=== PATIENT | male | born 1970 | race African-American/Black ===

== ENCOUNTER 2019-07-17 12:30 | Inpatient (IN) | payer BC, OTHER ==
[2019-07-17] MEDS ORDERED: SODIUM CHLORIDE 0.9% 1000 ML 2,000 ML IV ONE (12:34)
--- NOTE | 2019-07-17 12:36 | Emergency Department Report ---
Chief Complaint: Weakness Stated Complaint: FLU SYM/LBP - HPI History of Present Illness: sent by pmd Dr Fidel Rae; 49 y/o male pale weak ? anemic liberian speaking indicates epigastric abd pain motor exam non focal speakign in clear sentenses no respiratory distress conjunctiva pale denies brbpr, hematemesis labs, ekg xr chest ct ap non con ivf main side bp 105/61 mm hg MSE screening note: Focused history and physical exam performed. Due to findings the following was ordered: ED Disposition for MSE Condition: Stable
--- NOTE | 2019-07-17 13:08 | XRay Report ---
CHEST 1 VIEW 07/17/2019 12:54 PM INDICATION / CLINICAL INFORMATION: Epigastric pain. Weakness. COMPARISON: None available. FINDINGS: SUPPORT DEVICES: None. HEART / MEDIASTINUM: No significant abnormality. LUNGS / PLEURA: No significant pulmonary or pleural abnormality. No pneumothorax. ADDITIONAL FINDINGS: No significant additional findings. IMPRESSION: 1. No acute abnormality of the chest. Signer Name: Julio Melendez MD Signed: 07/17/2019 1:03 PM Workstation Name: [email or web address]
[2019-07-17 14:11] LABS: Basophils % (Auto) 0.3 % (0.0-1.8); Eosinophils % (Auto) 0.4 % (0.0-4.3); Lymphocytes # (Auto) 2.1 K/mm3 (1.2-5.4); Lymphocytes % (Auto) 20.8 % (13.4-35.0); Mean Corpuscular HGB Conc 33 % (32-34); Mean Corpuscular Volume 78 fl (84-94); Monocytes # (Auto) 0.8 K/mm3 (0.0-0.8); Monocytes % (Auto) 7.9 % (0.0-7.3); Platelet Count 304 K/mm3 (140-440); Red Blood Count 1.92 M/mm3 (3.65-5.03); Red Cell Distribution Width 18.7 % (13.2-15.2)
--- NOTE | 2019-07-17 14:12 | Cat Scan Report ---
CT ABDOMEN AND PELVIS WITHOUT CONTRAST HISTORY: abd ppain weak hypotension anemia. COMPARISON: None. TECHNIQUE: CT images of the abdomen and pelvis were obtained without administration of intravenous co ntrast. All CT scans at this location are performed using CT dose reduction for ALARA by means of au tomated exposure control. FINDINGS: Lungs/bones: Lung bases are clear. There is mild DJD in the spine and pelvis with no acute osseous a bnormality identified. There is a rounded sclerotic bone lesion measuring 2.2 cm in the right acetabu lar roof which demonstrates a narrow zone of transition and appears to have internal fatty marrow aryan ments. There is slight overlying cortical thickening as well with no endosteal scalloping, pathologic fracture, or cortical breakthrough/soft tissue component. Abdomen/pelvis: The liver, gallbladder, spleen, pancreas, adrenals, kidneys, and proximal GI tract a ppear unremarkable. Urinary bladder and prostate appear unremarkable with no pelvic free fluid or acute colonic abnormali ty. The appendix and terminal ileum appear normal. IMPRESSION: 1. No acute abnormality identified. 2. Incidental sclerotic bony finding in the right acetabular roof as outlined above which overall has a nonaggressive appearance such as seen with a fibro-osseous lesion. Despite this, correlate with an y prior imaging (I have none) and consider follow-up outpatient MRI of the pelvis with contrast for f urther evaluation. Signer Name: Saurabh Tim MD Signed: 07/17/2019 2:08 PM Workstation Name: [id number]
[2019-07-17 14:19] LABS: INR 1.08 (0.87-1.13)
[2019-07-17 14:27] LABS: Hematocrit 14.9 % (35.5-45.6); Hemoglobin 4.9 gm/dl (11.8-15.2)
[2019-07-17 14:29] LABS: Alanine Aminotransferase 20 units/L (7-56); Albumin 3.7 g/dL (3.9-5); BUN/Creatinine Ratio 30; Blood Urea Nitrogen 24 mg/dL (9-20); Calcium 8.4 mg/dL (8.4-10.2); Hemolysis Index 0
[2019-07-17] MEDS ORDERED: SODIUM CHLORIDE 0.9% 500 ML 500 ML IV ONE ×2 (18:53→20:13)
--- NOTE | 2019-07-17 19:17 | Emergency Department Report ---
ED Abdominal Pain HPI - General Chief Complaint: Weakness Stated Complaint: FLU SYM/LBP Time Seen by Provider: 07/17/19 18:40 Source: patient Mode of arrival: Wheelchair Limitations: Language Barrier - History of Present Illness Initial Comments: This is a 49-year-old male nontoxic, well nourished in appearance, no acute signs of distress presents to the ED with c/o of generlized weakness and abdominal pain. Patient was sent by PCP for hypotension and pale in appearance. Patient denies any blood in stool. Denies any hemoptysis.. Patient denies any vomiting. Patient describes abdominal pain as cramping and aching with level of 8/10 primarily in the epigastric area. Patient denies chest pain, short of breath, fever, chills, headache, stiff neck, numbness or tingling. Patient denies any diarrhea or constipation. Patient denies any recent travels. Patient denies any allergies and stated past medical history includes liver disease. present during full interview and exam for Malay translation. MD Complaint: abdominal pain -: days(s) Location: epigastric Radiation: none Migration to: no migration Severity: mild Severity scale (0 -10): 8 Quality: cramping, aching Consistency: constant Improves With: nothing Worsens With: nothing Associated Symptoms: nausea. denies: vomiting, diarrhea, fever, chills, constipation, dysuria, hematemesis, hematochezia, melena, hematuria, anorexia, syncope - Related Data Allergies Allergy/AdvReac Type Severity Reaction Status Date / Time No Known Allergies Allergy Verified 07/17/19 20:08 ED Review of Systems ROS: Stated complaint: FLU SYM/LBP Other details as noted in HPI Constitutional: denies: chills, fever Eyes: denies: eye pain, eye discharge, vision change ENT: denies: ear pain, throat pain Respiratory: denies: cough, shortness of breath, wheezing Cardiovascular: denies: chest pain, palpitations Endocrine: no symptoms reported Gastrointestinal: abdominal pain, nausea. denies: vomiting, diarrhea Genitourinary: denies: urgency, dysuria Musculoskeletal: denies: back pain, joint swelling, arthralgia Skin: denies: rash, lesions Neurological: denies: headache, weakness, paresthesias Psychiatric: denies: anxiety, depression Hematological/Lymphatic: denies: easy bleeding, easy bruising ED Past Medical Hx - Past Medical History Previous Medical History?: No - Surgical History Past Surgical History?: No - Social History Smoking Status: Current Every Day Smoker Substance Use Type: None ED Physical Exam - General Limitations: Language Barrier General appearance: alert, in no apparent distress - Head Head exam: Present: atraumatic, normocephalic - Eye Eye exam: Present: normal appearance, PERRL, EOMI Pupils: Present: normal accommodation - Neck Neck exam: Present: normal inspection, full ROM. Absent: tenderness, meningismus, lymphadenopathy - Respiratory Respiratory exam: Present: normal lung sounds bilaterally. Absent: respiratory distress, wheezes, rales, rhonchi, stridor, chest wall tenderness, accessory muscle use, decreased breath sounds, prolonged expiratory - Cardiovascular Cardiovascular Exam: Present: regular rate, normal rhythm, tachycardia, normal heart sounds. Absent: bradycardia, irregular rhythm, systolic murmur, diastolic murmur, rubs, gallop - GI/Abdominal GI/Abdominal exam: Present: soft, tenderness (epigastric), normal bowel sounds. Absent: distended, guarding, rebound, rigid, diminished bowel sounds - Rectal Rectal exam: Present: normal rectal tone, heme (+) stool, other (brown colored stool noticed. ). Absent: black stool, bloody stool, fecal impaction, he morrhoids, mass, tenderness - Extremities Exam Extremities exam: Present: normal inspection, full ROM - Back Exam Back exam: Present: normal inspection, full ROM. Absent: tenderness, CVA tenderness (R), CVA tenderness (L), muscle spasm, paraspinal tenderness, vertebral tenderness, rash noted - Neurological Exam Neurological exam: Present: alert, oriented X3, normal gait - Psychiatric Psychiatric exam: Present: normal affect, normal mood - Skin Skin exam: Present: warm, dry, intact, pallor. Absent: normal color, rash, cyanosis, diaphoretic, erythema, urticaria, vesicles, petechiae, abrasion, ecchy mosis ED Course Vital Signs 07/17/19 07/17/19 12:35 20:13 Temperature 98.5 F 98.9 F Pulse Rate 91 H 93 H Respiratory 16 21 Rate Blood Pressure 105/61 Blood Pressure 124/71 [Right] O2 Sat by Pulse 100 100 Oximetry - Reevaluation(s) Reevaluation #1: 07/17/19 19:18 Patient is speaking in full sentences with no signs of distress noted. - Consultations Consultation #1: 07/17/19 19:18 Patient has been consulted with Dr. Bro V about patient history, physical exam, and labs and agrees to ED plan of care and possible admission. Consultation #2: 07/17/19 20:15 Patient has been consulted with Dr. Jain (GI) about patient history, physical exam, and labs and patient to receive 3 RBCs with Protonix bolus and IV DRIP and admitted with hospitalist. ED Medical Decision Making - Lab Data Result diagrams: 07/17/19 13:38 07/17/19 13:38 - Medical Decision Making This is a 49-year-old male that presents with acute on chronic GI bleed. Patient is stable and was examined by me. Patient was consulted with GI and admitted by hospitalist TREY Olmos. CT shows possible enteritis. Dr. Crabtree consulted and agrees for admission. He was resuscitated with fluids and 3 RBCs. At time of admission, the patient does not seem toxic or ill in appearance. No acute signs of distress noted. Patient agrees to admission treatment plan of care. No further questions noted by the patient. - Differential Diagnosis GI bleed, GI ulcer, colitis, esophageal varices Critical care attestation.: If time is entered above; I have spent that time in minutes in the direct care of this critically ill patient, excluding procedure time. ED Disposition Clinical Impression: GI bleed Qualifiers: GI bleed type/associated pathology: unspecified gastrointestinal hemorrhage type Qualified Code(s): K92.2 - Gastrointestinal hemorrhage, unspecified Disposition: -09 OP ADMIT IP TO THIS HOSP Is pt being admited?: Yes Condition: Stable Referrals: NIGEL CARLTON MD [Primary Care Provider] - 3-5 Days
[2019-07-17] MEDS ORDERED: SODIUM CHLORIDE 0.9% 1000 ML 2,000 ML ONE (19:58)
[2019-07-17] MEDS: PANTOPRAZOLE 40 MG INJ IV ONE ×2 (20:55→21:00)
[2019-07-17] MEDS: PANTOPRAZOLE 80 MG in SODIUM CHLORIDE 0.9% 100 ML IV SCH (20:59)
--- NOTE | 2019-07-17 22:00 | Cat Scan Report ---
CT ABDOMEN AND PELVIS WITH IV CONTRAST INDICATION: abd pain. Diffuse left abdominal pain COMPARISON: None available. TECHNIQUE: Axial CT images were obtained through the abdomen and pelvis after 100 mL IV contrast. All CT scans a t this location are performed using CT dose reduction for ALARA by means of automated exposure contro l. FINDINGS -- ABDOMEN: Lung Bases: No acute abnormality. The left ventricle wall appears moderately thickened. Liver: Normal. Gallbladder: Normal. Bile Ducts: Normal. Pancreas: Normal. Spleen: Normal. Adrenals: Normal. Right Kidney and Proximal Ureter: Normal. Left Kidney and Proximal Ureter: Normal. Stomach and Bowel: Slight increased prominence and enhancement involving multiple small bowel loops t hroughout much of the left mid to lower abdomen, nonspecific. No bowel obstruction is appreciated.. Lymph Nodes: No significant adenopathy. Aorta: No significant abnormality. IVC: Normal. Additional Findings: None. FINDINGS -- PELVIS: Urinary Bladder and Distal Ureters: Normal. Reproductive Organs: No acute abnormality. Appendix: Normal. Bowel: No acute abnormality. Free Fluid: None. Lymph Nodes: No significant adenopathy. Additional Findings: None. Skeletal System: No acute abnormality. IMPRESSION: 1. Small bowel findings within the left mid abdomen appear most consistent with fairly diffuse enteri tis, possibly infectious. No evidence of bowel obstruction at this time. 2. Incidental note is made of a moderately thickened left ventricular wall of the lower heart. Signer Name: Wayne Arboleda MD Signed: 07/17/2019 9:55 PM Workstation Name: [id number]
[2019-07-17] MEDS ORDERED: METOCLOPRAMIDE 10 MG/2 ML INJ IV PRN (22:37)
[2019-07-17] MEDS ORDERED: ACETAMINOPHEN 325 MG TAB PO PRN (22:37)
[2019-07-17] MEDS ORDERED: ONDANSETRON 4 MG/2 ML INJ IV PRN (22:37)
[2019-07-17] MEDS ORDERED: SODIUM CHLORIDE 0.9% 1000 ML 1,000 ML IV SCH (22:45)
--- NOTE | 2019-07-17 23:45 | History and Physical Report ---
<JEFFERSON AQUINO - Last Filed: 07/18/19 00:13> History of Present Illness Date of examination: 07/17/19 Date of admission: 07/17/2019 Chief complaint: generalized weakness History of present illness: 49-year-old Cameroonian male who is an ongoing smoker with past medical history of "liver disease" who presents to the [facility] ED after being referred to ED by his PCP for concerns of hypotension and pallor. Pt's friend is present at the bed side. Pt does not speak Mohawk and has requested that his friend translate. Pt went to his PCP with complaints of generalized weakness and abdominal pain. The pain is located in epigastric area. He describes it as sharp and rates it 10/10. Denies hemoptysis, hematemesis, hematochezia, melena, or dyspnea. He was found to be hypotensive and was referred to ED for further evaluation and treatment. Patient was found to be severely anemic with hemoglobin of 4.9. Heme stool positive with no signs of active bleeding. GI was consulted and recommendations were appreciated. Will admit for further evaluation and treatment. Past History Past Medical History: No medical history, liver disease, other Past Surgical History: No surgical history Social history: smoking (smokes 1/2 pack per day) Family history: no significant family history Medications and Allergies Allergies Allergy/AdvReac Type Severity Reaction Status Date / Time No Known Allergies Allergy Verified 07/17/19 20:08 Active Meds: Active Medications Acetaminophen (Tylenol) 650 mg PO Q4H PRN PRN Reason: Pain MILD(1-3)/Fever >100.5/ROWELL Pantoprazole Sodium 80 mg/ (Sodium Chloride) 100 mls @ 10 mls/hr IV DIRECT ENOCH Last Admin: 07/17/19 20:59 Dose: 8 mg/hr, 10 mls/hr Documented by: Sodium Chloride (Nacl 0.9% 1000 Ml) 1,000 mls @ 100 mls/hr IV DIRECT ENOCH Metoclopramide HCl (Reglan) 10 mg IV Q6H PRN PRN Reason: Nausea And Vomiting Ondansetron HCl (Zofran) 4 mg IV Q6H PRN PRN Reason: Nausea And Vomiting Sodium Chloride (Sodium Chloride Flush Syringe 10 Ml) 10 ml IV BID ENOCH Sodium Chloride (Sodium Chloride Flush Syringe 10 Ml) 10 ml IV PRN PRN PRN Reason: LINE FLUSH Review of Systems All systems: negative Constitutional: fatigue, weakness Cardiovascular: other (hypotension) Exam - Physical Exam Narrative exam: Physical exam General appearance: Present: No acute distress, alert and oriented 3, well developed, pale, Cam[place]onian adult male - EENT Eyes: Present: PERRL, EOM intact ENT: hearing intact, normal dentition - Neck Neck: Present: supple, normal ROM - Respiratory Respiratory effort: Non-labored Respiratory: Clear throughout - Cardiovascular Heart rate: 93 (bpm) Rhythm: Sinus rhythm Heart Sounds: Present: S1 & S2. Absent: rub, click - Extremities Extremities: no ischemia, pulses intact, - Peripheral Assessment Peripheral Pulses: within normal limits - Abdominal General gastrointestinal:heme (+) stool, soft, non-tender, normal bowel sounds - Integumentary Integumentary: Present: warm, dry - Musculoskeletal Musculoskeletal: Able to move all extremities -Neurological Neurological: CN II-XII intact - Psychiatric Psychiatric: cooperative - Constitutional Vitals: Temp Pulse Resp BP Pulse Ox 98.0 F 78 18 120/67 100 07/17/19 22:55 07/17/19 23:00 07/17/19 23:00 07/17/19 23:00 07/17/19 23:00 Results - Labs CBC & Chem 7: 07/17/19 13:38 07/17/19 13:38 Labs: Laboratory Last Values WBC 10.2 K/mm3 (4.5-11.0) 07/17/19 13:38 RBC 1.92 M/mm3 (3.65-5.03) L 07/17/19 13:38 Hgb 4.9 gm/dl (11.8-15.2) L* 07/17/19 13:38 Hct 14.9 % (35.5-45.6) L* 07/17/19 13:38 MCV 78 fl (84-94) L 07/17/19 13:38 MCH 26 pg (28-32) L 07/17/19 13:38 MCHC 33 % (32-34) 07/17/19 13:38 RDW 18.7 % (13.2-15.2) H 07/17/19 13:38 Plt Count 304 K/mm3 (140-440) 07/17/19 13:38 Lymph % (Auto) 20.8 % (13.4-35.0) 07/17/19 13:38 Sanborn % (Auto) 7.9 % (0.0-7.3) H 07/17/19 13:38 Eos % (Auto) 0.4 % (0.0-4.3) 07/17/19 13:38 Baso % (Auto) 0.3 % (0.0-1.8) 07/17/19 13:38 Lymph # 2.1 K/mm3 (1.2-5.4) 07/17/19 13:38 Sanborn # 0.8 K/mm3 (0.0-0.8) 07/17/19 13:38 Eos # 0.0 K/mm3 (0.0-0.4) 07/17/19 13:38 Baso # 0.0 K/mm3 (0.0-0.1) 07/17/19 13:38 Seg Neutrophils % 70.6 % (40.0-70.0) H 07/17/19 13:38 Seg Neutrophils # 7.2 K/mm3 (1.8-7.7) 07/17/19 13:38 PT 14.1 Sec. (12.2-14.9) 07/17/19 13:38 INR 1.08 (0.87-1.13) 07/17/19 13:38 Sodium 134 mmol/L (137-145) L 07/17/19 13:38 Potassium 4.1 mmol/L (3.6-5.0) 07/17/19 13:38 Chloride 99.7 mmol/L (98-107) 07/17/19 13:38 Carbon Dioxide 23 mmol/L (22-30) 07/17/19 13:38 Anion Gap 15 mmol/L 07/17/19 13:38 BUN 24 mg/dL (9-20) H 07/17/19 13:38 Creatinine 0.8 mg/dL (0.8-1.5) 07/17/19 13:38 Estimated GFR > 60 ml/min 07/17/19 13:38 BUN/Creatinine Ratio 30 % 07/17/19 13:38 Glucose 114 mg/dL (75-100) H 07/17/19 13:38 Calcium 8.4 mg/dL (8.4-10.2) 07/17/19 13:38 Magnesium 2.30 mg/dL (1.7-2.3) 07/17/19 13:38 Total Bilirubin 0.30 mg/dL (0.1-1.2) 07/17/19 13:38 AST 33 units/L (5-40) 07/17/19 13:38 ALT 20 units/L (7-56) 07/17/19 13:38 Alkaline Phosphatase 57 units/L (35-129) 07/17/19 13:38 Total Creatine Kinase 128 units/L (55-170) 07/17/19 13:38 Troponin T 0.028 ng/mL (0.00-0.029) 07/17/19 13:38 Total Protein 6.0 g/dL (6.3-8.2) L 07/17/19 13:38 Albumin 3.7 g/dL (3.9-5) L 07/17/19 13:38 Albumin/Globulin Ratio 1.6 % 07/17/19 13:38 Lipase 44 units/L (13-60) 07/17/19 13:38 Blood Type O POSITIVE 07/17/19 13:40 Antibody Screen Negative 07/17/19 13:40 Crossmatch See Detail 07/17/19 13:40 - Imaging and Cardiology Imaging and Cardiology: CT Abdomen/Pelvis with con: FINDINGS -- ABDOMEN: Lung Bases: No acute abnormality. The left ventricle wall appears moderately thickened. Liver: Normal. Gallbladder: Normal. Bile Ducts: N ormal. Pancreas: Normal. Spleen: Normal. Adrenals: Normal. Right Kidney and Proximal Ureter: Normal. Left Kidney and Proximal Ureter: Normal. Stomach and Bowel: Slight increased prominence and enhancement involving multiple small bowel loops throughout much of the left mid to lower abdomen, nonspecific. No bowel obstruction is appreciated.. Lymph Nodes: No significant adenopathy. Aorta: No significant abnormality. IVC: Normal. Additional Findings: None. FINDINGS -- PELVIS: Urinary Bladder and Distal Ureters: Normal. Reproductive Organs: No acute abnormality. Appendix: Normal. Bowel: No acute abnormality. Free Fluid: None. Lymph Nodes: No significant adenopathy. Additional Findings: None. Skeletal System: No acute abnormality. IMPRESSION: 1. Small bowel findings within the left mid abdomen appear most consistent with fairly diffuse enteritis, possibly infectious. No evidence of bowel obstruction at this time. 2. Incidental note is made of a moderately thickened left ventricular wall of the lower heart. CT Abdomen/Pelvis without con: IMPRESSION: 1. No acute abnormality identified. 2. Incidental sclerotic bony finding in the right acetabular roof as outlined above which overall has a nonaggressive appearance such as seen with a fibro- osseous lesion. Despite this, correlate with any prior imaging (I have none) and consider follow-up outpatient MRI of the pelvis with contrast for further evaluation. CXR: FINDINGS: SUPPORT DEVICES: None. HEART / MEDIASTINUM: No significant abnormality. LUNGS / PLEURA: No significant pulmonary or pleural abnormality. No pneumothorax. ADDITIONAL FINDINGS: No significant additional findings. IMPRESSION: 1. No acute abnormality of the chest. Assessment and Plan Assessment and plan: 49-year-old Cam[place] male who is an ongoing smoker with past medical history of "liver disease" who presents to the [facility] ED after being referred to ED by his PCP for concerns of hypotension and pallor. GI Bleed -Heme positive stool -CT abdomen Pelvis revealed: Small bowel findings within the left mid abdomen appear most consistent with fairly diffuse enteritis, possibly infectious. No evidence of bowel obstruction at this time. -Hgb 4.9 -Receiving 3 units PRBC -N.p.o. -On Protonix drip -GI following Anemia -Hemoglobin on admission 4.9 -Highly suspicious for active GI bleed -Receiving transfusion -Continue to monitor hemoglobin -Transfuse as needed Hypotension -BP on admission 105/61 -Likely due to severe anemia -Responsive to fluid resuscitation -Receiving PRBC transfusion -Continue to monitor BP Acute abdominal pain -Suspicion for enteritis for CT results -No leukocytosis -Afebrile -No emesis or nausea -Continue supportive care -We will hold off on starting IV antibiotics for now Dehydration -BUN 24 -Likely due to anemia and poor oral intake -Received IV fluids -Continue to monitor Moderately thickened left ventricular wall of the lower heart -Incidental finding seen on CT abdomen/pelvis -Cardiology consulted Tobacco abuse -Current every day smoker -Smokes half pack a day -Counseled for cessation for 10 minutes -Nicotine patch when necessary DVT -SCD's -Full systemic anticoagulation due to severe anemia Advance Directives: No VTE prophylaxis?: Mechanical Plan of care discussed with patient/family: Yes <LROY SALGUERO - Last Filed: 07/18/19 04:07> History of Present Illness Date of admission: 07/17/19 22:37 Medications and Allergies Active Meds: Active Medications Acetaminophen (Tylenol) 650 mg PO Q4H PRN PRN Reason: Pain MILD(1-3)/Fever >100.5/ROWELL Pantoprazole Sodium 80 mg/ (Sodium Chloride) 100 mls @ 10 mls/hr IV DIRECT ENOCH Last Admin: 07/17/19 20:59 Dose: 8 mg/hr, 10 mls/hr Documented by: Sodium Chloride (Nacl 0.9% 1000 Ml) 1,000 mls @ 100 mls/hr IV DIRECT ENOCH Last Admin: 07/18/19 01:14 Dose: 100 mls/hr Documented by: Metoclopramide HCl (Reglan) 10 mg IV Q6H PRN PRN Reason: Nausea And Vomiting Nicotine (Habitrol) 14 mg TD QDAY ENOCH Ondansetron HCl (Zofran) 4 mg IV Q6H PRN PRN Reason: Nausea And Vomiting Sodium Chloride (Sodium Chloride Flush Syringe 10 Ml) 10 ml IV BID ENOCH Sodium Chloride (Sodium Chloride Flush Syringe 10 Ml) 10 ml IV PRN PRN PRN Reason: LINE FLUSH Exam - Constitutional Vitals: Temp Pulse Resp BP Pulse Ox 98.0 F 72 18 109/65 100 07/18/19 03:05 07/18/19 03:05 07/18/19 03:05 07/18/19 03:05 07/18/19 02:43 Results - Labs CBC & Chem 7: 07/17/19 13:38 07/17/19 13:38 Labs: Laboratory Last Values WBC 10.2 K/mm3 (4.5-11.0) 07/17/19 13:38 RBC 1.92 M/mm3 (3.65-5.03) L 07/17/19 13:38 Hgb 4.9 gm/dl (11.8-15.2) L* 07/17/19 13:38 Hct 14.9 % (35.5-45.6) L* 07/17/19 13:38 MCV 78 fl (84-94) L 07/17/19 13:38 MCH 26 pg (28-32) L 07/17/19 13:38 MCHC 33 % (32-34) 07/17/19 13:38 RDW 18.7 % (13.2-15.2) H 07/17/19 13:38 Plt Count 304 K/mm3 (140-440) 07/17/19 13:38 Lymph % (Auto) 20.8 % (13.4-35.0) 07/17/19 13:38 Sanborn % (Auto) 7.9 % (0.0-7.3) H 07/17/19 13:38 Eos % (Auto) 0.4 % (0.0-4.3) 07/17/19 13:38 Baso % (Auto) 0.3 % (0.0-1.8) 07/17/19 13:38 Lymph # 2.1 K/mm3 (1.2-5.4) 07/17/19 13:38 Sanborn # 0.8 K/mm3 (0.0-0.8) 07/17/19 13:38 Eos # 0.0 K/mm3 (0.0-0.4) 07/17/19 13:38 Baso # 0.0 K/mm3 (0.0-0.1) 07/17/19 13:38 Seg Neutrophils % 70.6 % (40.0-70.0) H 07/17/19 13:38 Seg Neutrophils # 7.2 K/mm3 (1.8-7.7) 07/17/19 13:38 PT 14.1 Sec. (12.2-14.9) 07/17/19 13:38 INR 1.08 (0.87-1.13) 07/17/19 13:38 Sodium 134 mmol/L (137-145) L 07/17/19 13:38 Potassium 4.1 mmol/L (3.6-5.0) 07/17/19 13:38 Chloride 99.7 mmol/L (98-107) 07/17/19 13:38 Carbon Dioxide 23 mmol/L (22-30) 07/17/19 13:38 Anion Gap 15 mmol/L 07/17/19 13:38 BUN 24 mg/dL (9-20) H 07/17/19 13:38 Creatinine 0.8 mg/dL (0.8-1.5) 07/17/19 13:38 Estimated GFR > 60 ml/min 07/17/19 13:38 BUN/Creatinine Ratio 30 % 07/17/19 13:38 Glucose 114 mg/dL (75-100) H 07/17/19 13:38 Calcium 8.4 mg/dL (8.4-10.2) 07/17/19 13:38 Magnesium 2.30 mg/dL (1.7-2.3) 07/17/19 13:38 Total Bilirubin 0.30 mg/dL (0.1-1.2) 07/17/19 13:38 AST 33 units/L (5-40) 07/17/19 13:38 ALT 20 units/L (7-56) 07/17/19 13:38 Alkaline Phosphatase 57 units/L (35-129) 07/17/19 13:38 Total Creatine Kinase 128 units/L (55-170) 07/17/19 13:38 Troponin T 0.028 ng/mL (0.00-0.029) 07/17/19 13:38 Total Protein 6.0 g/dL (6.3-8.2) L 07/17/19 13:38 Albumin 3.7 g/dL (3.9-5) L 07/17/19 13:38 Albumin/Globulin Ratio 1.6 % 07/17/19 13:38 Lipase 44 units/L (13-60) 07/17/19 13:38 Blood Type O POSITIVE 07/17/19 13:40 Antibody Screen Negative 07/17/19 13:40 Crossmatch See Detail 07/17/19 13:40 Assessment and Plan Assessment and plan: 49-year-old male comes emergency room with complaints of epigastric pain which he has been experiencing for the last 6 months to 1 year however his symptoms worsened today so he came for evaluation. Also admits to weight loss of over the last 3 months, cannot quantify. In the emergency room he was found to be anemic he denies blood in stool or vomitus. Hemoglobin was extremely low but he was GI was consulted for EGD. Agree with plan as stated above.
[2019-07-18 07:09] LABS: Basophils % (Auto) 0.7 % (0.0-1.8); Eosinophils # (Auto) 0.1 K/mm3 (0.0-0.4); Eosinophils % (Auto) 0.9 % (0.0-4.3); Hemoglobin 6.6 gm/dl (11.8-15.2); Lymphocytes # (Auto) 1.9 K/mm3 (1.2-5.4); Lymphocytes % (Auto) 25.4 % (13.4-35.0); Mean Corpuscular HGB Conc 33 % (32-34); Mean Corpuscular Volume 84 fl (84-94); Monocytes # (Auto) 0.5 K/mm3 (0.0-0.8); Monocytes % (Auto) 6.7 % (0.0-7.3); Platelet Count 239 K/mm3 (140-440); Red Blood Count 2.38 M/mm3 (3.65-5.03); Red Cell Distribution Width 18.7 % (13.2-15.2)
[2019-07-18 07:43] LABS: Hematocrit 19.9 % (35.5-45.6)
[2019-07-18 07:51] LABS: BUN/Creatinine Ratio 24; Blood Urea Nitrogen 12 mg/dL (9-20); Calcium 6.1 mg/dL (8.4-10.2); Hemolysis Index 21
--- NOTE | 2019-07-18 10:06 | Gastroenterology Consultation ---
History of Present Illness - Reason for Consult Consult date: 07/18/19 GI bleed Requesting physician: SABA TOURE - History of Present Illness Patient is a 49 y/o male who was sent to ED by PCP for evaluation of hypotension and pallor. Upon admission, he was found to be severely anemic with H/H 4.9/14.9 to which GI has been consulted for evaluation of GI bleeding. This morning patient was resting in bed w/o acute distress with family at bedside (daughter and brother via phone) who assisted with providing history. No active signs of bleeding such as hematemesis, melena, or hematochezia. Unsure if there has been wt loss (patient noted to be poor historian). Patient states abd pain now resolved. Denies fever, CP, SOB, or N/V. No evidence of diarrhea or constipation with last BM a couple of days ago per patient with stool non-bloody. No hx of anemia, GI bleeding, or known Fhx of GI cancer. No previous EGD/colonoscopy. Per chart review there is a hx of "liver disease" but abd CT showed liver normal (revealed small bowel enteritis) and labs with LFTs/plt/INR/lipase WNL. Past History Past Medical History: No medical history, liver disease, other Past Surgical History: No surgical history Social history: smoking (smokes 1/2 pack per day) Family history: no significant family history Past History Past Medical History: other (liver disease?) Past Surgical History: No surgical history Social history: smoking (smokes 1/2 pack per day). denies: alcohol abuse Family history: no significant family history Medications and Allergies Allergies Allergy/AdvReac Type Severity Reaction Status Date / Time No Known Allergies Allergy Verified 07/17/19 20:08 Active Meds: Active Medications Acetaminophen (Tylenol) 650 mg PO Q4H PRN PRN Reason: Pain MILD(1-3)/Fever >100.5/ROWELL Pantoprazole Sodium 80 mg/ (Sodium Chloride) 100 mls @ 10 mls/hr IV DIRECT ENOCH Last Admin: 07/17/19 20:59 Dose: 8 mg/hr, 10 mls/hr Documented by: Sodium Chloride (Nacl 0.9% 1000 Ml) 1,000 mls @ 100 mls/hr IV DIRECT ENOCH Last Admin: 01/31/20 01:14 Dose: 100 mls/hr Documented by: Metoclopramide HCl (Reglan) 10 mg IV Q6H PRN PRN Reason: Nausea And Vomiting Nicotine (Habitrol) 14 mg TD QDAY ENOCH Ondansetron HCl (Zofran) 4 mg IV Q6H PRN PRN Reason: Nausea And Vomiting Sodium Chloride (Sodium Chloride Flush Syringe 10 Ml) 10 ml IV BID ENOCH Sodium Chloride (Sodium Chloride Flush Syringe 10 Ml) 10 ml IV PRN PRN PRN Reason: LINE FLUSH medications reviewed/updated as required Review of Systems - Review of Systems All systems: negative Constitutional: weakness Gastrointestinal: abdominal pain (?-resolved) Exam - Constitutional Vital Signs: Temp Pulse Resp BP Pulse Ox 97.6 F 82 20 114/61 98 07/18/19 06:00 07/18/19 09:06 07/18/19 09:06 07/18/19 09:06 07/18/19 09:06 General appearance: no acute distress - EENT Eyes: PERRL, EOM intact ENT: hearing intact - Respiratory Respiratory effort: normal Respiratory: bilateral: CTA - Cardiovascular Rhythm: regular - Gastrointestinal General gastrointestinal: Present: soft, non-tender, non-distended, normal bowel sounds - Integumentary Integumentary: Present: warm, dry - Neurologic Neurological: alert and oriented x3 - Labs CBC & Chem 7: 07/18/19 06:35 07/18/19 06:35 Lab Results: Laboratory Results - last 24 hr 07/17/19 07/17/19 07/17/19 13:38 13:38 13:38 WBC 10.2 RBC 1.92 L Hgb 4.9 L* Hct 14.9 L* MCV 78 L MCH 26 L MCHC 33 RDW 18.7 H Plt Count 304 Lymph % (Auto) 20.8 [place] % (Auto) 7.9 H Eos % (Auto) 0.4 Baso % (Auto) 0.3 Lymph # 2.1 [place] # 0.8 Eos # 0.0 Baso # 0.0 Seg Neutrophils % 70.6 H Seg Neutrophils # 7.2 PT 14.1 INR 1.08 Sodium 134 L Potassium 4.1 Chloride 99.7 Carbon Dioxide 23 Anion Gap 15 BUN 24 H Creatinine 0.8 Estimated GFR > 60 BUN/Creatinine Ratio 30 Glucose 114 H Calcium 8.4 Magnesium 2.30 Total Bilirubin 0.30 AST 33 ALT 20 Alkaline Phosphatase 57 Total Creatine Kinase 128 Troponin T 0.028 Total Protein 6.0 L Albumin 3.7 L Albumin/Globulin Ratio 1.6 Lipase Blood Type Antibody Screen Crossmatch 07/17/19 07/17/19 07/18/19 13:38 13:40 06:35 WBC 7.5 RBC 2.38 L Hgb 6.6 L Hct 19.9 L* MCV 84 MCH 28 MCHC 33 RDW 18.7 H Plt Count 239 Lymph % (Auto) 25.4 [place] % (Auto) 6.7 Eos % (Auto) 0.9 Baso % (Auto) 0.7 Lymph # 1.9 [place] # 0.5 Eos # 0.1 Baso # 0.0 Seg Neutrophils % 66.3 Seg Neutrophils # 5.0 PT INR Sodium Potassium Chloride Carbon Dioxide Anion Gap BUN Creatinine Estimated GFR BUN/Creatinine Ratio Glucose Calcium Magnesium Total Bilirubin AST ALT Alkaline Phosphatase Total Creatine Kinase Troponin T Total Protein Albumin Albumin/Globulin Ratio Lipase 44 Blood Type O POSITIVE Antibody Screen Negative Crossmatch See Detail 07/18/19 06:35 WBC RBC Hgb Hct MCV MCH MCHC RDW Plt Count Lymph % (Auto) [place] % (Auto) Eos % (Auto) Baso % (Auto) Lymph # [place] # Eos # Baso # Seg Neutrophils % Seg Neutrophils # PT INR Sodium 142 D Potassium 3.0 L D Chloride 114.0 H Carbon Dioxide 17 L Anion Gap 14 BUN 12 Creatinine 0.5 L Estimated GFR > 60 BUN/Creatinine Ratio 24 Glucose 66 L Calcium 6.1 L D Magnesium Total Bilirubin AST ALT Alkaline Phosphatase Total Creatine Kinase Troponin T Total Protein Albumin Albumin/Globulin Ratio Lipase Blood Type Antibody Screen Crossmatch Assessment and Plan 1.anemia 2.H/o liver disease? - WBC, LFTs, plt, INR, and lipase WNL -MCV 78 and BUN 24 on admission -abd CT showed enteritis in small bowel but liver normal -H/H 4.9/14.9 on admission, now 6.6/19.9 s/p 2 units PRBCs w/ 3rd unit currently transfusing -continue to monitor H/H and transfuse as needed -no active signs of bleeding; rectal with brown stool -currently HD stable -etiology unclear -will schedule for EGD/colonoscopy tomorrow for further evaluation -acute hepatitis panel in am -okay for clear liquids today then NPO after MN -continue PPI and supportive care -will follow
[2019-07-18] MEDS: NICOTINE 14 MG/24 HR PATCH TD SCH (11:20)
--- NOTE | 2019-07-18 11:38 | Progress Note ---
Assessment and Plan Anemia of blood loss -Hemoglobin on admission 4.9 -Highly suspicious for active GI bleed -Receiving transfusion -Continue to monitor hemoglobin -Transfuse as needed GI Bleed -Heme positive stool -CT abdomen Pelvis revealed: Small bowel findings within the left mid abdomen appear most consistent with fairly diffuse enteritis, possibly infectious. No evidence of bowel obstruction at this time. -Hgb 4.9 on admission -Receiving 3 units PRBC -N.p.o. after midnight, clear liquid diet for now -On Protonix drip -GI following, EGD tomorrow Hypotension -BP on admission 105/61 -Likely due to severe anemia -Responsive to fluid resuscitation -Receiving PRBC transfusion -Continue to monitor BP Acute abdominal pain, resolved -Suspicion for enteritis for CT results -No leukocytosis -Afebrile, tolerating diet -No emesis or nausea -Continue supportive care -We will hold off on starting IV antibiotics for now Dehydration -BUN 24 -Likely due to anemia and poor oral intake -Received IV fluids -Continue to monitor Moderately thickened left ventricular wall of the lower heart -Incidental finding seen on CT abdomen/pelvis -2d echo ordered; SHOWED PRESERVED EF Tobacco abuse -Current every day smoker -Smokes half pack a day -Counseled for cessation for 10 minutes -Nicotine patch when necessary DVT -SCD's -No systemic anticoagulation due to severe anemia Brief History: 49-year-old [place] male who is an ongoing smoker with past medical history of "liver disease" who presents to the [facility] ED after being referred to ED by his PCP for concerns of hypotension and pallor. In the ER he was heam positive and C BC showed severe anemia. GI consulted, ordered 3 units PRBC, plan for EGD tomorrow. Subjective Date of service: 07/18/19 Interval history: Patient seen and examined stool positive for occult blood, no active bleeding tolerating clear liquid diet Objective - Constitutional Vitals: Vital Signs - 12hr 07/18/19 07/18/19 07/18/19 00:00 01:31 01:50 Temperature 97.6 F Pulse Rate 80 75 77 Respiratory 23 18 18 Rate Blood Pressure 127/72 114/70 110/62 O2 Sat by Pulse 100 100 Oximetry 07/18/19 07/18/19 07/18/19 02:12 02:43 03:05 Temperature 97.6 F 98.1 F 98.0 F Pulse Rate 77 61 72 Respiratory 18 18 18 Rate Blood Pressure 110/62 108/65 109/65 O2 Sat by Pulse 100 100 Oximetry 07/18/19 07/18/19 07/18/19 03:35 06:00 09:06 Temperature 98.2 F 97.6 F Pulse Rate 71 75 82 Respiratory 18 20 20 Rate Blood Pressure 102/65 104/59 114/61 O2 Sat by Pulse 98 98 Oximetry General appearance: Present: no acute distress - EENT Eyes: PERRL, EOM intact ENT: hearing intact, clear oral mucosa Ears: bilateral: normal - Neck Neck: supple, normal ROM - Respiratory Respiratory effort: normal Respiratory: bilateral: CTA - Cardiovascular Rhythm: regular Heart Sounds: Present: S1 & S2. Absent: gallop, rub Extremities: pulses intact, No edema, normal color, Full ROM - Gastrointestinal General gastrointestinal: Present: soft, non-tender, non-distended, normal bowel sounds - Integumentary Integumentary: clear, warm, dry - Musculoskeletal Musculoskeletal: 1, strength equal bilaterally - Neurologic Neurologic: moves all extremities - Psychiatric Psychiatric: memory intact, appropriate mood/affect, intact judgment & insight - Labs CBC & Chem 7: 07/18/19 06:35 07/18/19 06:35 Labs: Abnormal lab results 07/17/19 07/17/19 07/17/19 Range/Units 13:38 13:38 13:40 RBC 1.92 L (3.65-5.03) M/mm3 Hgb 4.9 L* (11.8-15.2) gm/dl Hct 14.9 L* (35.5-45.6) % MCV 78 L (84-94) fl MCH 26 L (28-32) pg RDW 18.7 H (13.2-15.2) % [place] % (Auto) 7.9 H (0.0-7.3) % Seg Neutrophils % 70.6 H (40.0-70.0) % Sodium 134 L (137-145) mmol/L Potassium (3.6-5.0) mmol/L Chloride (98-107) mmol/L Carbon Dioxide (22-30) mmol/L BUN 24 H (9-20) mg/dL Creatinine (0.8-1.5) mg/dL Glucose 114 H (75-100) mg/dL Calcium (8.4-10.2) mg/dL Total Protein 6.0 L (6.3-8.2) g/dL Albumin 3.7 L (3.9-5) g/dL Crossmatch See Detail 07/18/19 07/18/19 Range/Units 06:35 06:35 RBC 2.38 L (3.65-5.03) M/mm3 Hgb 6.6 L (11.8-15.2) gm/dl Hct 19.9 L* (35.5-45.6) % MCV (84-94) fl MCH (28-32) pg RDW 18.7 H (13.2-15.2) % [place] % (Auto) (0.0-7.3) % Seg Neutrophils % (40.0-70.0) % Sodium (137-145) mmol/L Potassium 3.0 L D (3.6-5.0) mmol/L Chloride 114.0 H (98-107) mmol/L Carbon Dioxide 17 L (22-30) mmol/L BUN (9-20) mg/dL Creatinine 0.5 L (0.8-1.5) mg/dL Glucose 66 L (75-100) mg/dL Calcium 6.1 L D (8.4-10.2) mg/dL Total Protein (6.3-8.2) g/dL Albumin (3.9-5) g/dL Crossmatch - Imaging and cardiology Chest x-ray: report reviewed CT scan - abdomen: report reviewed
[2019-07-18] MEDS: PANTOPRAZOLE 80 MG in SODIUM CHLORIDE 0.9% 100 ML IV SCH ×2 (11:58→23:23)
[2019-07-18] MEDS ORDERED: POLYETHYLENE GLYCOL/ELECT SOLN 4000 ML PO ONE (12:00)
[2019-07-18] MEDS ORDERED: D5W/0.45% NACL/KCL 30 MEQ 30 MEQ/1,000 ML BAG IV SCH (12:00)
[2019-07-18] MEDS: POTASSIUM CHLORIDE IV SCH (15:44)
[2019-07-18] MEDS: NACL IV SCH (15:44)
[2019-07-18] MEDS: D5W IV SCH (15:44)
[2019-07-19] MEDS: POTASSIUM CHLORIDE IV SCH (02:21)
[2019-07-19] MEDS: NACL IV SCH (02:21)
[2019-07-19] MEDS: D5W IV SCH (02:21)
[2019-07-19 05:02] LABS: Basophils % (Auto) 0.6 % (0.0-1.8); Eosinophils # (Auto) 0.1 K/mm3 (0.0-0.4); Eosinophils % (Auto) 1.2 % (0.0-4.3); Hematocrit 27.2 % (35.5-45.6); Lymphocytes % (Auto) 27.6 % (13.4-35.0); Mean Corpuscular HGB Conc 33 % (32-34); Mean Corpuscular Volume 83 fl (84-94); Monocytes # (Auto) 0.5 K/mm3 (0.0-0.8); Monocytes % (Auto) 7.4 % (0.0-7.3); Platelet Count 277 K/mm3 (140-440); Red Blood Count 3.29 M/mm3 (3.65-5.03); Red Cell Distribution Width 18.2 % (13.2-15.2)
[2019-07-19 05:20] LABS: BUN/Creatinine Ratio 14; Blood Urea Nitrogen 10 mg/dL (9-20); Hemolysis Index 0
[2019-07-19 05:35] LABS: Hepatitis C Virus Antibody Non-Reactive (NonReactive)
[2019-07-19 06:17] LABS: Hepatitis B Surface Antigen Non-Reactive (Negative)
[2019-07-19] MEDS ORDERED: SODIUM CHLORIDE 0.9% 1000 ML 1,000 ML IV SCH (09:00)
[2019-07-19] MEDS ORDERED: LIDOCAINE MPF (2%) 20 MG/1 ML VIAL 5 ML ONE (09:30)
[2019-07-19] MEDS ORDERED: PROPOFOL 200 MG/20 ML VIAL IV ONE ×2 (09:32)
[2019-07-19] MEDS ORDERED: SODIUM CHLORIDE 0.9% 1000 ML 1,000 ML ONE (09:33)
--- NOTE | 2019-07-19 09:33 | Anesthesia Day of Surgery ---
Anesthesia Day of Surgery - Day of Surgery Patient Examined: Yes Patient H&P Reviewed: Yes Patient is NPO: Yes
--- NOTE | 2019-07-19 09:33 | Anesthesia Consultation ---
Anesthesia Consult and Med Hx Date of service: 07/19/19 - Airway Anesthetic Teeth Evaluation: Good ROM Head & Neck: Adequate Mental/Hyoid Distance: Adequate Mallampati Class: Class II Intubation Access Assessment: Probably Good - Pulmonary Exam CTA: Yes - Cardiac Exam Cardiac Exam: RRR (grade 2/6 systolic murmur) - Pre-Operative Health Status ASA Pre-Surgery Classification: ASA2 Proposed Anesthetic Plan: MAC - Pulmonary Hx Smoking: Yes (< 1/2 PPD) Hx Respiratory Symptoms: No - Cardiovascular System Hx Hypertension: No Hx Heart Attack/AMI: No Hx Percutaneous Transluminal Coronary Angioplasty (PTCA): No - Central Nervous System CVA: No - Gastrointestinal Hx Gastroesophageal Reflux Disease: No - Endocrine Hx Renal Disease: No Hx Liver Disease: Yes (hx liver disease mentioned in chart but normal labs and imaging) Hx Insulin Dependent Diabetes: No Hx Non-Insulin Dependent Diabetes: No Hx Thyroid Disease: No - Hematic Hx Anemia: Yes (presented with Hb <5; appropriate response to transfusion) - Other Systems Hx Obesity: No
[2019-07-19] MEDS ORDERED: MULTIVITAMINS,THER W-MINERALS TAB PO SCH (10:00)
[2019-07-19] MEDS ORDERED: PANTOPRAZOLE 40 MG TAB PO SCH (10:00)
--- NOTE | 2019-07-19 10:03 | Post Operative Note ---
Pre-op diagnosis: Acute blood loss anemia Post-op diagnosis: other (DU, gastritis, polyp) Findings: 1. 1cm white-based DU, without vessel 2. Erosive gastritis (cold biopsy) 3. 5mm sigmoid colon polyp, cold snare 4. Internal hemorrhoids, Grade II Procedure: EGD with cold biopsy; Colonoscopy with cold snare polypectomy Anesthesia: MAC Surgeon: ED WHARTON Estimated blood loss: minimal Pathology: list (1. Gastric antrum, r/o H pylori. 2. Sigmoid colon polyp) Specimen disposition: to lab Condition: stable Disposition: floor (Recs: 1. D/C smoking and NSAIDs. 2. Protonix QD therapy. 3. F/U in the clinic in 4-6 weeks to recheck blood counts. 4. OK to d/c home today if tolerates PO, and no gross bleeding.)
--- NOTE | 2019-07-19 10:25 | Operative Report ---
PROCEDURE PERFORMED: Esophagogastroduodenoscopy with cold biopsy and colonoscopy with cold snare polypectomy. PREOPERATIVE DIAGNOSIS: Acute blood loss anemia. POSTOPERATIVE DIAGNOSES: Duodenal ulcer, colon polyp, hemorrhoids, gastritis. ENDOSCOPIST: Jermaine Brar MD INSTRUMENT: Olympus video endoscope. MEDICATIONS: MAC anesthesia by [facility]. COMPLICATIONS: No apparent complications. ESTIMATED BLOOD LOSS: Minimal. SPECIMENS: 1. Gastric antrum, rule out H. pylori. 2. Sigmoid colon polyp. IMPLANTS: None. ASSISTANTS: None. CONDITION AT COMPLETION: Stable. TECHNIQUE: The patient was informed of the risks and benefits of the procedure through a pipe fitter helper. After consent was obtained, he was placed in the left lateral decubitus position. The above sedative medications were given. His vital signs remained stable throughout the procedure. The endoscope was advanced from the mouth to the second portion of the duodenum under direct visualization. At that point, the bowel was insufflated and the endoscope was slowly withdrawn. The bed was then rotated and the colonoscope was advanced from the anus to the cecum under direct visualization. The cecum was identified by the appendiceal orifice and the ileocecal valve. At that point, the bowel was insufflated and the endoscope was slowly withdrawn. FINDINGS: 1. 1 cm white-based duodenal ulcer in the bulb, with clean margins and no evidence of a visible vessel. 2. Erosive gastritis in the antrum of the stomach, status post cold biopsy to rule out H. pylori. 3. Normal esophagus. 4. A 5 mm polyp in the sigmoid colon, pedunculated, removed with cold snare polypectomy. 5. Internal hemorrhoids, grade 2. 6. No active bleeding and no blood clots throughout the upper or lower GI tract. RECOMMENDATIONS: 1. The patient should discontinue smoking and nonsteroidal anti-inflammatory drugs. 2. Protonix daily therapy. 3. Follow up in the clinic in 4-6 weeks to recheck blood counts. 4. Okay to discharge the patient home today if he tolerates oral diet and no evidence of gross bleeding. JOB# [id number] SHUKRI/DUNCAN
--- NOTE | 2019-07-19 10:43 | Post Anesthesia Evaluation ---
- Post Anesthesia Evaluation Patient Participated: Yes Airway Patent: Yes Stable Respiratory Function: Yes Nausea/Vomiting: No Temp > 96.8F: Yes Pain Manageable: Yes Adequeate Hydration: Yes Anesthesia Complications: No
[2019-07-19] MEDS: NICOTINE 14 MG/24 HR PATCH TD SCH (12:08)
[2019-07-19 15:03] VITALS: BP 132/76
--- NOTE | 2019-07-19 16:12 | Discharge Summary ---
Providers - Providers Date of Admission: 07/17/19 22:37 Attending physician: ROSITA TORRES 07/17/19 20:16 Consult to Physician [CONS] Urgent Comment: Consulting Provider: LU TORRES Physician Instructions: Reason For Exam: GI bleed Primary care physician: NIGEL CARLTON Hospitalization Condition: Stable Hospital course: Pre-op diagnosis: Acute blood loss anemia Post-op diagnosis: other (DU, gastritis, polyp) Findings: 1. 1cm white-based DU, without vessel 2. Erosive gastritis (cold biopsy) 3. 5mm sigmoid colon polyp, cold snare 4. Internal hemorrhoids, Grade II Procedure: EGD with cold biopsy; Colonoscopy with cold snare polypectomy Anesthesia: MAC Surgeon: ED WHARTON Estimated blood loss: minimal Pathology: list (1. Gastric antrum, r/o H pylori. 2. Sigmoid colon polyp) Specimen disposition: to lab Condition: stable Disposition: floor (Recs: 1. D/C smoking and NSAIDs. 2. Protonix QD therapy. 3. F/U in the clinic in 4-6 weeks to recheck blood counts. 4. OK to d/c home today if tolerates PO, and no gross bleeding.) Disposition: DC-30 STILL A PATIENT Core Measure Documentation - Palliative Care Palliative Care/ Comfort Measures: Not Applicable Exam - Constitutional Vitals: Temp Pulse Resp BP Pulse Ox 97.4 F L 62 20 132/76 100 07/19/19 11:35 07/19/19 11:35 07/19/19 11:35 07/19/19 11:35 07/19/19 11:35 Plan Activity: no restrictions Diet: regular Special Instructions: smoking cessation Additional Instructions: Advised to quit smoking. Avoid NSAID group of drugs. If you notice any new episodes of bleeding, contact [facility] or go to emergency room Follow up with: NIGEL CARLTON MD [Primary Care Provider] - 3-5 Days ED WHARTON MD [Staff Physician] - 14 Days Prescriptions: Nicotine [Habitrol] 14 mg TD QDAY #30 patch Pantoprazole [Protonix TAB] 40 mg PO QDAY #30 tablet
== END 2019-07-19 18:16 | disposition home or self-care (01) | DRG 378 ==
LOC: ED 12:30 → 3A 22:37
PROVIDERS: ADMIT Internal Medicine; ATTEND Internal Medicine
PROC: 30233N1 Transfusion of Nonautologous Red Blood Cells into Peripheral Vein, Percutaneous Approach (ICD-10-PCS; principal; 2019-07-17)
PROC: 0DB78ZX Excision of Stomach, Pylorus, Via Natural or Artificial Opening Endoscopic, Diagnostic (ICD-10-PCS; 2019-07-19)
PROC: 0DBN8ZZ Excision of Sigmoid Colon, Via Natural or Artificial Opening Endoscopic (ICD-10-PCS; 2019-07-19)
DX: K25.4 Chronic or unspecified gastric ulcer with hemorrhage (principal); D62 Acute posthemorrhagic anemia; K63.5 Polyp of colon; K26.9 Duodenal ulcer, unspecified as acute or chronic, without hemorrhage or perforation; I95.9 Hypotension, unspecified; E86.0 Dehydration; F17.210 Nicotine dependence, cigarettes, uncomplicated; K64.1 Second degree hemorrhoids; Z71.6 Tobacco abuse counseling
CPT/HCPCS: 36415; 71045; 74176; 74177; 80048; 80053; 80074; 82271; 82550; 83690; 83735; 84484; 85014; 85018; 85025; 85610; 86850; 86900; 86901; 86920; 88305; 88342; 93005; 93010; 93306; 96365; G0378; C9113; J2704; J3480; J7030; J7040; P9016; Q9967